=== PATIENT | female | born 1980 | race African-American/Black ===

== ENCOUNTER 2017-03-24 12:22 | Emergency (ER) | payer OTHER ==
[~2017-03-24] VITALS: Ht 170.2 cm; Wt 73.5 kg
[~2017-03-24 12:22] MED LIST: Motrin PO; NAPROSYN500 MG PO; ZOLOFT25 MG PO
[2017-03-24 13:27] LABS: ADD MIUA? YES; BILIRUBIN NEGATIVE; BLOOD MODERATE; COLOR STRAW ((YELLOW)); GLUCOSE (STRIP) NEGATIVE; KETONES NEGATIVE; LEUKOCYTES NEGATIVE; NITRITE NEGATIVE; PROTEIN (STRIP) NEGATIVE; SPECIFIC GRAVITY 1.009 (1.000-1.030); UROBILINOGEN 0.2 MG/DL (0.2-1.0)
[2017-03-24 13:33] LABS: BACTERIA RARE /HPF; EPITHELIAL CELLS RARE /HPF; MUCUS TRACE /LPF; RED BLOOD CELLS 0-5 /HPF (0-5); UCUL ADDED? NO; WHITE BLOOD CELLS 0-5 /HPF (0-5)
[2017-03-24 13:34] LABS: HEMATOCRIT 36.7 % (36.0-46.0); MCH 28.8 PG (29.0-34.0); MCHC 33.2 G/DL (30.0-36.0); MCV 86.6 FL (83-99); MEAN PLAT.VOLUME 10.1 uM^3 (9.5-12.4); PLATELET COUNT 229 K/uL (156-360); RBC DIS.WIDTH-CV 12.9 % (11.8-14.6); RBC DIS.WIDTH-SD 40.5 % (39-53); RED BLOOD COUNT 4.24 M/uL (3.80-5.20); WHITE BLOOD COUNT 8.2 K/uL (4.1-10.2)
[2017-03-24 13:42] LABS: CHLORIDE 107 mEq/L (99-109); POTASSIUM 3.5 mEq/L (3.7-5.4); SODIUM 141 mEq/L (136-147)
[2017-03-24 13:44] LABS: GLUCOSE 65 mg/dL (70-99)
[2017-03-24 13:45] LABS: ANION GAP 10 MEQ/L (2-14)
[2017-03-24 13:46] LABS: TOTAL BILIRUBIN 1.4 mg/dL (0.0-1.0)
[2017-03-24 13:48] LABS: ALKALINE PHOSPHATASE 42 IU/L (3-129); GFR ESTIMATE (CALCULATED) > 59 mL/min/
[2017-03-24 13:49] LABS: UREA NITROGEN (BUN) 6 mg/dL (9-23)
[2017-03-24 14:02] LABS: QUANTITATIVE HCG < 4.0 MIU/ML
[2017-03-24] MEDS ORDERED: VITAMIN D34000 UNIT PO (14:20)
[2017-03-24 14:22] LABS: LIPASE 17 U/L (1.0-51.0)
[2017-03-24] MEDS ORDERED: PEPCID20 MG PO (16:33)
[2017-03-24] MEDS ORDERED: CARAFATE1 GM PO (16:33)
[2017-03-24 16:50] VITALS: BP 108/64
== END 2017-03-24 16:52 | disposition home or self-care (01) ==
LOC: EME 12:22
DX: R10.13 Epigastric pain (principal); J45.909 Unspecified asthma, uncomplicated
CPT/HCPCS: 76705; 80053; 81003; 83690; 84702; 85027; 99281; 99284

== ENCOUNTER 2017-05-12 22:59 | Emergency (ER) | payer OTHER ==
[~2017-05-12] VITALS: Ht 170.2 cm; Wt 73.5 kg
[~2017-05-12 22:59] MED LIST changes: +CARAFATE1 GM PO; +PEPCID20 MG PO; +VITAMIN D34000 UNIT PO
[2017-05-12 23:07] VITALS: BP 128/87
[2017-05-13] MEDS ORDERED: MOTRIN800 MG PO (01:34)
[2017-05-13] MEDS ORDERED: NORCO 7.5/321 TABLET PO (01:34)
[2017-05-13] MEDS ORDERED: VIBRAMYCIN100 MG PO (01:34)
== END 2017-05-13 02:03 | disposition home or self-care (01) ==
LOC: EME 22:59
PROC: 0H9CXZZ Drainage of Left Upper Arm Skin, External Approach (ICD-10-PCS; principal; 2017-05-12)
DX: L72.3 Sebaceous cyst (principal)
CPT/HCPCS: 87070; 87075; 87076; 87205; 99281; 99284

== ENCOUNTER 2017-05-14 15:39 | Emergency (ER) | payer OTHER ==
[~2017-05-14] VITALS: Ht 170.2 cm; Wt 70.9 kg
[~2017-05-14 15:39] MED LIST changes: +MOTRIN800 MG PO; +NORCO 7.5/321 TABLET PO; +VIBRAMYCIN100 MG PO
[2017-05-14 17:14] VITALS: BP 113/70
== END 2017-05-14 17:14 | disposition home or self-care (01) ==
LOC: EME 15:39
DX: Z48.01 Encounter for change or removal of surgical wound dressing (principal); L02.412 Cutaneous abscess of left axilla
CPT/HCPCS: 99281; 99284

== ENCOUNTER 2017-09-20 19:37 | Emergency (ER) | payer OTHER ==
[~2017-09-20] VITALS: Ht 170.2 cm; Wt 72.6 kg
[2017-09-20 20:19] LABS: HEMATOCRIT 37.2 % (36.0-46.0); MCH 29.2 PG (29.0-34.0); MCHC 33.3 G/DL (30.0-36.0); MCV 87.5 FL (83-99); MEAN PLAT.VOLUME 10.1 uM^3 (9.5-12.4); PLATELET COUNT 213 K/uL (156-360); RBC DIS.WIDTH-CV 12.9 % (11.8-14.6); RBC DIS.WIDTH-SD 41.2 % (39-53); RED BLOOD COUNT 4.25 M/uL (3.80-5.20)
[2017-09-20 20:28] LABS: CHLORIDE 106 mEq/L (99-109); POTASSIUM 3.7 mEq/L (3.7-5.4); SODIUM 143 mEq/L (136-147)
[2017-09-20 20:30] LABS: GLUCOSE 91 mg/dL (70-99)
[2017-09-20 20:31] LABS: ANION GAP 12 MEQ/L (2-14)
[2017-09-20 20:34] LABS: GFR ESTIMATE (CALCULATED) > 59 mL/min/
[2017-09-20 20:35] LABS: UREA NITROGEN (BUN) 8 mg/dL (9-23)
[2017-09-20 20:40] LABS: TROP-I INTERPRETATION NEGATIVE; TROPONIN-I < 0.01 ng/mL (0.0-0.30)
[2017-09-20 22:55] LABS: TROP-I INTERPRETATION NEGATIVE; TROPONIN-I < 0.01 ng/mL (0.0-0.30)
[2017-09-20 23:11] VITALS: BP 119/87
== END 2017-09-20 22:20 | disposition home or self-care (01) ==
LOC: EME 19:37
PROVIDERS: Emergency Medicine
DX: R07.89 Other chest pain (principal); I34.1 Nonrheumatic mitral (valve) prolapse; J45.909 Unspecified asthma, uncomplicated
CPT/HCPCS: 71020; 80048; 84484; 85027; 85379; 93005; 99281; 99283

== ENCOUNTER 2017-09-21 13:57 | Emergency (ER) | payer OTHER ==
[~2017-09-21] VITALS: Ht 170.2 cm; Wt 73.6 kg
[2017-09-21 14:40] LABS: HEMATOCRIT 37.5 % (36.0-46.0); MCH 29.1 PG (29.0-34.0); MCHC 33.3 G/DL (30.0-36.0); MCV 87.4 FL (83-99); MEAN PLAT.VOLUME 10.2 uM^3 (9.5-12.4); PLATELET COUNT 198 K/uL (156-360); RBC DIS.WIDTH-CV 12.8 % (11.8-14.6); RBC DIS.WIDTH-SD 40.4 % (39-53); RED BLOOD COUNT 4.29 M/uL (3.80-5.20); WHITE BLOOD COUNT 7.1 K/uL (4.1-10.2)
[2017-09-21 14:48] LABS: CHLORIDE 106 mEq/L (99-109); SODIUM 140 mEq/L (136-147)
[2017-09-21 14:50] LABS: GLUCOSE 81 mg/dL (70-99)
[2017-09-21 14:52] LABS: ANION GAP 12 MEQ/L (2-14); TOTAL BILIRUBIN 0.6 mg/dL (0.0-1.0)
[2017-09-21 14:53] LABS: INTER. NORMALIZED RATIO 1.1; PROTHROMBIN TIME 11.9 SEC (10.2-12.9)
[2017-09-21 14:54] LABS: ALKALINE PHOSPHATASE 49 IU/L (3-129); GFR ESTIMATE (CALCULATED) > 59 mL/min/
[2017-09-21 14:55] LABS: UREA NITROGEN (BUN) 10 mg/dL (9-23)
[2017-09-21 16:19] VITALS: BP 125/83
== END 2017-09-21 16:20 | disposition home or self-care (01) ==
LOC: EME 13:57
PROVIDERS: Nurse Practitioner Family
DX: R07.89 Other chest pain (principal); M79.1 Myalgia; R06.02 Shortness of breath; R79.1 Abnormal coagulation profile; J45.909 Unspecified asthma, uncomplicated; I34.1 Nonrheumatic mitral (valve) prolapse
CPT/HCPCS: 71275; 80053; 85027; 85610; 99281; 99285; J7030

== ENCOUNTER 2018-01-26 10:25 | Observation (INO) | payer OTHER ==
[~2018-01-26] VITALS: Ht 170.2 cm; Wt 82.0 kg
[2018-01-26 12:09] LABS: HEMATOCRIT 34.8 % (36.0-46.0); HEMOGLOBIN 11.6 G/DL (11.9-15.5); MCH 29.1 PG (29.0-34.0); MCHC 33.3 G/DL (30.0-36.0); MCV 87.2 FL (83-99); PLATELET COUNT 178 K/uL (156-360); RBC DIS.WIDTH-CV 12.9 % (11.8-14.6); RBC DIS.WIDTH-SD 41.1 % (39-53); RED BLOOD COUNT 3.99 M/uL (3.80-5.20)
[2018-01-26 12:18] LABS: CHLORIDE 108 mEq/L (99-109); POTASSIUM 3.8 mEq/L (3.7-5.4); SODIUM 141 mEq/L (136-147)
[2018-01-26 12:20] LABS: GLUCOSE 80 mg/dL (70-99)
[2018-01-26 12:23] LABS: SERUM ETHYL ALCOHOL < 10 mg/dL
[2018-01-26 12:24] LABS: CREATININE 0.8 mg/dL (0.6-1.3); GFR ESTIMATE (CALCULATED) > 59 mL/min/
[2018-01-26 12:26] LABS: UREA NITROGEN (BUN) 8 mg/dL (9-23)
[2018-01-26 12:27] LABS: ACETAMINOPHEN (TYLENOL) < 10 mcg/mL (10-30); SALICYLATE < 5.0 MG/DL (15-30)
[2018-01-26 12:33] LABS: QUANTITATIVE HCG < 4.0 MIU/ML
[2018-01-26 13:20] LABS: APPEARANCE SL.HAZY ((CLEAR)); BILIRUBIN NEGATIVE; BLOOD MODERATE; COLOR STRAW ((YELLOW)); GLUCOSE (STRIP) NEGATIVE; KETONES NEGATIVE; LEUKOCYTES NEGATIVE; NITRITE NEGATIVE; PROTEIN (STRIP) NEGATIVE; SPECIFIC GRAVITY 1.015 (1.000-1.030); UROBILINOGEN 0.2 MG/DL (0.2-1.0)
[2018-01-26 13:27] LABS: BACTERIA RARE /HPF; EPITHELIAL CELLS 1+ /HPF; MUCUS TRACE /LPF; RED BLOOD CELLS 0-5 /HPF (0-5); UCUL ADDED? NO; WHITE BLOOD CELLS 0-5 /HPF (0-5)
[2018-01-26 13:32] LABS: AMPHETAMINE NEGATIVE (500 ng/mL); BARBITURATES NEGATIVE (200 ng/mL); BENZODIAZEPINES NEGATIVE (150 ng/mL); BUPRENORPHINE NEGATIVE (10 ng/mL); COCAINE NEGATIVE (150 ng/mL); METHADONE NEGATIVE (200 ng/mL); METHAMPHETAMINE NEGATIVE (500 ng/mL); OPIATES (MORPHINE) NEGATIVE (100 ng/mL); OXYCODONE NEGATIVE (100 ng/mL); PHENCYCLIDINE NEGATIVE (25 ng/mL); PROPOXYPHENE NEGATIVE (300 ng/mL); THC CANNABINOIDS NEGATIVE (50 ng/mL); TRICYCLIC ANTIDEPRESSANTS NEGATIVE (300 ng/mL)
[2018-01-26 17:32] LABS: HDL CHOLESTEROL 48 MG/DL (Desirable>=50); LDL CHOLESTEROL 77 mg/dL (Desirable<100); NON-HDL CHOLESTEROL 84 mg/dL (Desirable<160); TOTAL CHOLESTEROL 132 mg/dL (Desirable<200); TRIGLYCERIDES 36 MG/DL (Normal: <150)
[2018-01-26 17:49] VITALS: BP 111/61
[2018-01-26 20:45] VITALS: BP 101/58
[2018-01-27] VITALS (7 sets, daily range): BP systolic 102–139; BP diastolic 55–84
[2018-01-27 09:38] LABS: HEMOGLOBIN A1c (GLYCOHEMOGLOB) 5.1 % (Below 5.7)
[2018-01-27] MEDS ORDERED: LEVETIRACETAM500 MG PO (11:50)
[2018-01-27 15:02] LABS: HEMATOCRIT 37.9 % (36.0-46.0); HEMOGLOBIN 12.7 G/DL (11.9-15.5); MCH 29.3 PG (29.0-34.0); MCHC 33.5 G/DL (30.0-36.0); MCV 87.3 FL (83-99); PLATELET COUNT 195 K/uL (156-360); RBC DIS.WIDTH-CV 12.9 % (11.8-14.6); RED BLOOD COUNT 4.34 M/uL (3.80-5.20); WHITE BLOOD COUNT 5.3 K/uL (4.1-10.2)
[2018-01-27 15:25] LABS: ALBUMIN 4.2 G/DL (3.2-4.8); ALKALINE PHOSPHATASE 41 IU/L (3-129); ALT (GPT) 16 IU/L (3-49); AST (GOT) 19 IU/L (2-34); CHLORIDE 106 MEQ/L (99-109); CREATININE 0.7 MG/DL (0.6-1.3); GFR ESTIMATE (CALCULATED) > 59 mL/min/; GLUCOSE 75 mg/dL (70-99); POTASSIUM 3.9 MEQ/L (3.7-5.4); SODIUM 140 MEQ/L (136-147); TOTAL BILIRUBIN 0.8 MG/DL (0.0-1.0); TOTAL PROTEIN 6.9 G/DL (6.4-8.3); UREA NITROGEN (BUN) 9 mg/dL (9-23)
[2018-01-28] VITALS (7 sets, daily range): BP systolic 105–116; BP diastolic 63–76
[2018-01-29 03:41] VITALS: BP 103/61
[2018-01-29 09:56] VITALS: BP 111/67
[2018-01-29 12:44] VITALS: BP 112/71
== END 2018-01-29 16:36 | disposition home or self-care (01) ==
LOC: EME 10:25 → 5WEST 16:15 → EDOF 16:15 → ENRESERV 16:18 → 5WEST 17:30 → ENPENDDIS 01-27 → 5WEST 01-29 16:36
PROVIDERS: Hospitalist; Physician Assistant Medical
DX: G40.909 Epilepsy, unspecified, not intractable, without status epilepticus (principal); R41.0 Disorientation, unspecified; D64.9 Anemia, unspecified; R31.29 Other microscopic hematuria; I34.1 Nonrheumatic mitral (valve) prolapse; R47.81 Slurred speech; M47.892 Other spondylosis, cervical region; Z88.5 Allergy status to narcotic agent
CPT/HCPCS: 70450; 70551; 72141; 80048; 80053; 80061; 81003; 82607; 82948; 83036; 84702; 85027; 92523 GN; 93005; 95819; 97530 GO; 99281; 99285; G0378; G0480; G8987 GO CJ; G8988 GO CH; J1650; J1885